=== PATIENT | female | born 1980 | race Two or more races ===

== ENCOUNTER 2018-11-13 18:27 | Emergency (ER) | payer OTHER ==
[~2018-11-13] VITALS: Ht 160 cm; Wt 68.9 kg
[2018-11-13] MEDS: IBUPROFEN 800 MG TABLET PO ONE (20:06)
[2018-11-13] MEDS ORDERED: IBUPROFEN 800 MG TABLET ONE (20:08)
[2018-11-13] MEDS ORDERED: NEOMY/BACITRA/POLYMYXIN B OINT UD PACKET TP ONE (20:09)
[2018-11-13] MEDS: NEOMY/BACITRA/POLYMYXIN B OINT UD PACKET TP ONE (20:10)
--- NOTE | 2018-11-13 20:10 | NUR ---
Xray at bedside
[2018-11-13 20:57] VITALS: BP 102/68
== END 2018-11-13 20:58 | disposition home or self-care (01) ==
LOC: ER 18:27
DX: S50.311A Abrasion of right elbow, initial encounter (principal); S49.91XA Unspecified injury of right shoulder and upper arm, initial encounter; W05.1XXA Fall from non-moving nonmotorized scooter, initial encounter; Y93.89 Activity, other specified; Y92.89 Other specified places as the place of occurrence of the external cause; Y99.8 Other external cause status
CPT/HCPCS: 73030; 73080; A4663